=== PATIENT | female | born 1940 | race African-American/Black ===

== ENCOUNTER 2017-07-30 07:05 | Day surgery (SDC) | payer MEDICARE ==
[~2017-07-30] VITALS: Ht 160 cm; Wt 91.8 kg
[~2017-07-30 07:05] MED LIST: CYCLOPENTOLATE HCL 1% 2 ML OPHTHALMIC SOLUTION ONE; FLURBIPROFEN SODIUM 0.03% 2.5 ML OPHTHALMIC SOLUTION ONE; PHENYLEPHRINE HCL 2.5% 2 ML OPHTHALMIC SOLUTION ONE; RINGERS SOLUTION,LACTATED 500 ML IV ONE; TROPICAMIDE 1% 2 ML OPHTHALMIC SOLUTION ONE
[2017-07-30] MEDS ORDERED: FentaNYL CITRATE-PF 100 MCG/2 ML VIAL IVP ONE (07:06)
[2017-07-30] MEDS ORDERED: MIDAZOLAM HCL 2 MG/2 ML VIAL IVP ONE (07:06)
[2017-07-30] MEDS ORDERED: RINGERS SOLUTION,LACTATED 500 ML IV ONE ×2 (07:30)
[2017-07-30] MEDS: PHENYLEPHRINE HCL 2.5% 2 ML OPHTHALMIC SOLUTION OS SCH ×3 (07:57→08:16)
[2017-07-30] MEDS: CYCLOPENTOLATE HCL 1% 2 ML OPHTHALMIC SOLUTION OS SCH ×3 (07:58→08:16)
[2017-07-30] MEDS: FLURBIPROFEN SODIUM 0.03% 2.5 ML OPHTHALMIC SOLUTION OS SCH ×3 (07:58→08:16)
[2017-07-30] MEDS: TROPICAMIDE 1% 2 ML OPHTHALMIC SOLUTION OS SCH ×3 (07:58→08:16)
== END 2017-07-30 11:10 | disposition home or self-care (01) ==
LOC: SURGERY 07:05
PROVIDERS: ATTEND Ophthalmology
DX: H25.89 Other age-related cataract (principal); I10 Essential (primary) hypertension; K21.9 Gastro-esophageal reflux disease without esophagitis; G43.809 Other migraine, not intractable, without status migrainosus; M19.90 Unspecified osteoarthritis, unspecified site; Z88.6 Allergy status to analgesic agent; Z88.8 Allergy status to other drugs, medicaments and biological substances; Z72.89 Other problems related to lifestyle; Z90.722 Acquired absence of ovaries, bilateral; Z90.89 Acquired absence of other organs; Z87.891 Personal history of nicotine dependence; Z98.890 Other specified postprocedural states
CPT/HCPCS: 66982; C1780; J2250; J3010; J7120

== ENCOUNTER 2017-10-01 07:09 | Day surgery (SDC) | payer MEDICARE, OTHER ==
[~2017-10-01] VITALS: Ht 161.3 cm; Wt 90.0 kg
[2017-10-01] MEDS: CYCLOPENTOLATE HCL 1% 2 ML OPHTHALMIC SOLUTION OD SCH ×3 (07:44→07:53)
[2017-10-01] MEDS: PHENYLEPHRINE HCL 2.5% 2 ML OPHTHALMIC SOLUTION OD SCH ×3 (07:44→07:53)
[2017-10-01] MEDS: TROPICAMIDE 1% 2 ML OPHTHALMIC SOLUTION OD SCH ×3 (07:44→07:53)
[2017-10-01] MEDS: FLURBIPROFEN SODIUM 0.03% 2.5 ML OPHTHALMIC SOLUTION OD SCH ×3 (07:44→07:53)
[2017-10-01 07:48] LABS: GLUCOMETER DEV NAME(LOC) SDS 5; GLUCOSE,POINT OF CARE 100 MG/DL (70-110)
[2017-10-01] MEDS ORDERED: METF500T7 PO (08:27)
[2017-10-01] MEDS ORDERED: FERR134T2 PO (08:27)
[2017-10-01] MEDS ORDERED: GABA-531 PO (08:27)
[2017-10-01] MEDS ORDERED: MULT-1203 PO (08:27)
[2017-10-01] MEDS ORDERED: ESOM20CA31 PO (08:27)
[2017-10-01] MEDS ORDERED: TELM40 PO (08:27)
[2017-10-01] MEDS ORDERED: ATEN25TA PO (08:27)
[2017-10-01] MEDS ORDERED: CYCL05OE OU (08:27)
[2017-10-01] MEDS ORDERED: MECL12.585 PO (08:27)
[2017-10-01] MEDS ORDERED: ATOR20TA86 PO (08:27)
[2017-10-01] MEDS ORDERED: METH2.5 PO (08:31)
[2017-10-01] MEDS ORDERED: MIDAZOLAM HCL 2 MG/2 ML VIAL IVP ONE (12:00)
[2017-10-01] MEDS ORDERED: FentaNYL CITRATE-PF 100 MCG/2 ML VIAL IVP ONE (12:00)
[2017-10-01] MEDS ORDERED: HYALURONATE SODIUM 12 MG/ML 0.8 ML SYRINGE IO ONE (16:31)
[2017-10-01] MEDS ORDERED: NEOMYCIN/POLYMYXIN B/DEXAMETH 3.5 GM OPHTHALMIC OINTMENT ONE (16:31)
[2017-10-01] MEDS ORDERED: MethylPREDNISolone SOD SUCC 40 MG/ML VIAL ONE (16:31)
[2017-10-01] MEDS ORDERED: TETRACAINE HCL VISCOUS 0.5% 0.6 ML OPHTHALMIC SOLUTION ONE (16:31)
[2017-10-01] MEDS ORDERED: HYALURONATE SOD/CHONDROITIN SOD 0.5 ML VIAL IO ONE (16:31)
[2017-10-01] MEDS ORDERED: APRACLONIDINE 0.5% 5 ML OPHTHALMIC SOLUTION ONE (16:31)
[2017-10-01] MEDS ORDERED: LIDOCAINE HCL/PF 1% 2 ML VIAL ONE (16:31)
[2017-10-01] MEDS ORDERED: POVIDONE-IODINE 10% 15 ML SOLUTION UD ONE (16:31)
== END 2017-10-01 10:20 | disposition home or self-care (01) ==
LOC: SURGERY 07:09
PROVIDERS: ATTEND Ophthalmology
DX: E11.36 Type 2 diabetes mellitus with diabetic cataract (principal); H25.89 Other age-related cataract; I10 Essential (primary) hypertension; K21.9 Gastro-esophageal reflux disease without esophagitis; G43.809 Other migraine, not intractable, without status migrainosus; E11.40 Type 2 diabetes mellitus with diabetic neuropathy, unspecified; E66.9 Obesity, unspecified; M19.90 Unspecified osteoarthritis, unspecified site; E78.00 Pure hypercholesterolemia, unspecified; Z79.891 Long term (current) use of opiate analgesic; Z88.6 Allergy status to analgesic agent; Z68.34 Body mass index [BMI] 34.0-34.9, adult; Z72.89 Other problems related to lifestyle; Z88.5 Allergy status to narcotic agent; Z90.722 Acquired absence of ovaries, bilateral; Z90.49 Acquired absence of other specified parts of digestive tract; Z90.89 Acquired absence of other organs; Z98.42 Cataract extraction status, left eye; Z79.84 Long term (current) use of oral hypoglycemic drugs; Z88.8 Allergy status to other drugs, medicaments and biological substances; Z98.890 Other specified postprocedural states; Z79.899 Other long term (current) drug therapy
CPT/HCPCS: 66982; 82962; 93005; C1780; J2250; J3010; J7120; J2920; J3490